=== PATIENT | female | born 1975 | race Caucasian/White ===

== ENCOUNTER 2018-07-10 20:10 | Observation (INO) | payer OTHER ==
[~2018-07-10] VITALS: Ht 157.5 cm; Wt 54.0 kg
[2018-07-10] MEDS ORDERED: SODIUM CHLORIDE 0.9% 1000ML 1,000 ML IV STA (20:27)
[2018-07-10] MEDS ORDERED: ASPIRIN 325 MG TAB ONE (20:32)
[2018-07-10 20:43] LABS: BASOPHILS % 0.3 % (0.0-1.0); EOSINOPHILS # (AUTO) 0.2 (0.0-0.4); EOSINOPHILS % 2.5 % (0.0-6.0); HEMATOCRIT 39.1 % (34.2-44.1); HEMOGLOBIN 13.7 g/dL (12.0-16.0); LYMPHOCYTES # (AUTO) 1.1 (1.0-3.2); LYMPHOCYTES % 17.3 % (18.0-39.1); MEAN CORPUSCULAR HEMOGLOBIN 32.1 pg (28-32); MEAN CORPUSCULAR VOLUME 91.6 fL (81-99); MONOCYTES # (AUTO) 0.4 (0.2-0.8); MONOCYTES % 7.1 % (4.4-11.3); NEUTROPHILS # (AUTO) 4.4 (2.1-6.9); NEUTROPHILS % 72.5 % (38.7-80.0); PLATELET COUNT 215 x10e3/uL (140-360); RED BLOOD COUNT 4.27 x10e6/uL (3.6-5.1); RED CELL DISTRIBUTION WIDTH 12.1 % (11.7-14.4)
[2018-07-10 20:54] LABS: INR 0.92; PROTHROMBIN TIME 13.2 seconds (11.9-14.5)
[2018-07-10 20:55] LABS: PARTIAL THROMBOPLASTIN TIME 26.1 seconds (23.8-35.5)
[2018-07-10 21:04] LABS: ALANINE AMINOTRANSFERASE 35 IU/L (0-55); ALBUMIN 4.5 g/dL (3.5-5.0); ALBUMIN/GLOBULIN RATIO 1.3 (0.8-2.0); ALKALINE PHOSPHATASE 53 IU/L (40-150); ANION GAP 15.5 mmol/L (8-16); BLOOD UREA NITROGEN 11 mg/dL (7-26); BUN/CREATININE RATIO 14 (6-25); CALCIUM 9.7 mg/dL (8.4-10.2); CARBON DIOXIDE 26 mmol/L (22-29); CHLORIDE 101 mmol/L (98-107); CREATINE KINASE 66 IU/L (29-168); CREATININE, SERUM 0.78 mg/dL (0.57-1.11); EST GLOMERULAR FILTRATION RATE > 60 ML/MIN (60-); GLUCOSE 112 mg/dL (74-118); POTASSIUM 3.5 mmol/L (3.5-5.1); SODIUM 139 mmol/L (136-145)
[2018-07-10 21:24] LABS: THYROID STIMULATING HORMONE 2.861 uIU/mL (0.350-4.940)
--- NOTE | 2018-07-10 21:31 | Diagnostic Imaging Report ---
EXAMINATION: CHEST 2 VIEWS INDICATION: Chest pain. ^CP ^[id number] ^2100 COMPARISON: None FINDINGS: PA and lateral views TUBES and LINES: None. LUNGS: Lungs are well inflated. Lungs are clear. There is no evidence of pneumonia or pulmonary edema. PLEURA: No pleural effusion or pneumothorax. HEART AND MEDIASTINUM: The cardiomediastinal silhouette is unremarkable. BONES AND SOFT TISSUES: No acute osseous lesion. Soft tissues are unremarkable. UPPER ABDOMEN: No free air under the diaphragm. IMPRESSION: No acute thoracic abnormality. Signed by: DR. Cody Katz MD on 07/10/2018 9:27 PM
[2018-07-10] MEDS ORDERED: KETOROLAC TROMETHAMINE 30 MG/ML VIAL IV ONE (21:45)
[2018-07-10] MEDS ORDERED: TECFIDERA PO (22:05)
[2018-07-10] MEDS ORDERED: NITROGLYCERIN 0.4 MG SUBL SL PRN (23:15)
[2018-07-10] MEDS ORDERED: SODIUM CHLORIDE FLUSH 10 ML SYR INJ PRN (23:15)
[2018-07-10] MEDS ORDERED: MORPHINE SULFATE 2 MG/ML SYR IV PRN (23:15)
[2018-07-10] MEDS ORDERED: FAMOTIDINE 20 MG TAB PO SCH (23:15)
[2018-07-10] MEDS ORDERED: ONDANSETRON HCL INJ 2 MG/ML VIAL IV PRN (23:15)
--- OUTSIDE RECORDS SUMMARY | 2018-07-10 23:22 | XMS REPORT ---
Author Author [facility] Address Unknown Phone Unavailable Care Team Providers Care Gis Engineer Name Role Phone Katy GRIGGS Unavailable Unavailable Problems This patient has no known problems. Allergies, Adverse Reactions, Alerts This patient has no known allergies or adverse reactions. Medications This patient has no known medications. Results Test Description Test Time Test Comments Text Results Atomic Results Result Comments CHEST 2 VIEWS 2018-07-10 21:26:00 [place] [id number] Patient Name: COSME BAEZA MR #: [id number] : 1975 Age/Sex: 42/F Req #: [id number] Adm Physician: Ordered by: CARRINGTON GRIGGS MD Report #: [id number] Location: ER Room/Bed: Procedure: [id number] DX/CHEST 2 VIEWS Exam Date: 07/10/18 Exam Time: 2099 REPORT STATUS: Signed EXAMINATION: CHEST 2 VIEWS INDICATION: Chest pain. [id number] COMPARISON: None FINDINGS: PA and lateral views TUBES and LINES: None. LUNGS: Lungs are well inflated. Lungs are clear. There is no evidence of pneumonia or pulmonary edema. PLEURA: No pleural effusion or pneumothorax. HEART AND MEDIASTINUM: The cardiomediastinal silhouette is unremarkable. BONES AND SOFT TISSUES: No acute osseous lesion. Soft tissues are unremarkable. UPPER ABDOMEN: No free air under the diaphragm. IMPRESSION: No acute thoracic abnormality. Signed by: DR. Cody Bailey MD on 07/10/2018 9:27 PM Dictated By: CODY BAILEY MD 26 Transcribed By: DAX on 07/10/182126 COPY TO: CARRINGTON GRIGGS MD
--- NOTE | 2018-07-10 23:36 | NUR ---
placed on tele box [id number]
[2018-07-10 23:47] VITALS: BP 142/70
[2018-07-11 00:25] VITALS: BP 142/70
[2018-07-11 05:09] LABS: BASOPHILS % 0.6 % (0.0-1.0); EOSINOPHILS # (AUTO) 0.2 (0.0-0.4); EOSINOPHILS % 4.4 % (0.0-6.0); HEMATOCRIT 33.3 % (34.2-44.1); HEMOGLOBIN 11.6 g/dL (12.0-16.0); LYMPHOCYTES # (AUTO) 0.9 (1.0-3.2); LYMPHOCYTES % 18.4 % (18.0-39.1); MEAN CORPUSCULAR HEMOGLOBIN 31.8 pg (28-32); MEAN CORPUSCULAR HGB CONC 34.8 g/dL (31-35); MEAN CORPUSCULAR VOLUME 91.2 fL (81-99); MONOCYTES # (AUTO) 0.6 (0.2-0.8); MONOCYTES % 11.5 % (4.4-11.3); NEUTROPHILS # (AUTO) 3.1 (2.1-6.9); NEUTROPHILS % 64.7 % (38.7-80.0); PLATELET COUNT 197 x10e3/uL (140-360); RED BLOOD COUNT 3.65 x10e6/uL (3.6-5.1)
[2018-07-11 05:31] LABS: ANION GAP 12.5 mmol/L (8-16); BLOOD UREA NITROGEN 10 mg/dL (7-26); BUN/CREATININE RATIO 16 (6-25); CALCIUM 8.5 mg/dL (8.4-10.2); CARBON DIOXIDE 23 mmol/L (22-29); CHLORIDE 104 mmol/L (98-107); CHOL/HDL RATIO 2.1 (3.0-3.6); CHOLESTEROL 131 MD/DL (0-199); CREATININE, SERUM 0.62 mg/dL (0.57-1.11); EST GLOMERULAR FILTRATION RATE > 60 ML/MIN (60-); GLUCOSE 80 mg/dL (74-118); HDL CHOLESTEROL 63 MG/DL (40-60); LDL CHOLESTEROL 58 MG/DL (60-130); POTASSIUM 3.5 mmol/L (3.5-5.1); SODIUM 136 mmol/L (136-145); TRIGLYCERIDES 48 MG/DL (0-149)
[2018-07-11 05:49] LABS: CREATINE KINASE MB 0.4 ng/mL (0-5.0)
[2018-07-11 06:08] VITALS: BP 107/53
--- NOTE | 2018-07-11 07:00 | NUR ---
SHIFT REPORT RECEIVED FROM NIGHT RN. PT DENIES NEEDS AT THIS TIME.
[2018-07-11] MEDS ORDERED: FAMOTIDINE20 MG PO (07:47)
[2018-07-11] MEDS ORDERED: REGLAN10 MG PO (07:47)
[2018-07-11] MEDS ORDERED: ASPIR 8181 MG PO (07:48)
[2018-07-11 08:12] VITALS: BP 115/61
[2018-07-11 09:00] VITALS: BP 115/61
[2018-07-11] MEDS ORDERED: TECFIDERA PO SCH (09:00)
[2018-07-11] MEDS ORDERED: ASPIRIN 81 MG ENTERIC COATED PO SCH (09:00)
--- NOTE | 2018-07-11 19:07 | Discharge Summary ---
ADMISSION DIAGNOSES 1. Chest pain. 2. Multiple sclerosis. DISCHARGE DIAGNOSES 1. Chest pain. 2. Multiple sclerosis. 3. Ruled out acute coronary syndrome. 4. Ruled out myocardial infarction. MEDICAL HISTORY: Patient has a history of multiple sclerosis. SURGICAL HISTORY: None. FAMILY HISTORY: Patient's mother had diabetes. Patient's aunt had cancer. SOCIAL HISTORY: Noncontributory. HOSPITAL COURSE: A 42-year-old female complains of central chest pain described as sharp and a pop that began Sunday while sitting at the table with her family. The chest pain does not radiate, but she is now only having chest pain on the left side. She complains of associated shortness of breath but denies nausea, vomiting, diaphoresis. Pain is worse with activity and improved with rest. 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 Troponins were negative x2. EKG showed normal sinus rhythm. Echo showed an EF of 65% to 70% with trace tricuspid regurgitation. Chest x-ray was negative. Vital signs stable, patient afebrile. Patient was given a prescription for aspirin, Reglan and Pepcid. She was instructed to follow up with Primary Care in 1 to 2 weeks and Cardiology if chest pain did not resolve. Patient and understand discharge instructions and agree to plan. Dictated by: Yumi Emanuel NP TRINI GONZALES MD Job#: [id number]
== END 2018-07-11 11:33 | disposition home or self-care (01) ==
LOC: ER 20:10 → ERHOLD 23:10 → MED/SURG2 23:43
PROVIDERS: ADMIT Internal Medicine; ATTEND Internal Medicine
DX: R07.89 Other chest pain (principal); G35 Multiple sclerosis; Z83.3 Family history of diabetes mellitus; Z80.9 Family history of malignant neoplasm, unspecified; Z28.21 Immunization not carried out because of patient refusal
CPT/HCPCS: 36415 ×2; 71046; 80048; 80053; 80061; 82550 ×2; 82553 ×2; 83880; 84443; 84484 ×2; 85025 ×2; 85379; 85610; 85730; 93005; 93306; 99284; G0378 ×2; J1885; J7030